=== PATIENT | female | born 1965 | race Caucasian/White ===

== ENCOUNTER 2016-11-15 10:09 | Emergency (ER) | payer OTHER ==
[~2016-11-15 10:09] MED LIST: ACETAMINOPHEN325 MG PO; BACLOFEN10 MG PO; IBUPROFEN200 MG PO; LIPITOR40 MG PO; NEURONTIN600 MG PO; PHENERGAN25 M1 PO; PRISTIQ100 MG PO; SYNTHROID150 MCG PO; ZOLOFT50 MG PO
== END 2016-11-15 16:55 | disposition home or self-care (01) ==
LOC: ER 10:09
DX: R07.9 Chest pain, unspecified (principal); J11.1 Influenza due to unidentified influenza virus with other respiratory manifestations; R79.89 Other specified abnormal findings of blood chemistry; F32.9 Major depressive disorder, single episode, unspecified; F41.9 Anxiety disorder, unspecified; N18.9 Chronic kidney disease, unspecified; E03.9 Hypothyroidism, unspecified
CPT/HCPCS: 36415; 87502; 96361; 96374; 96375; 96376; J2550; Q9967

== ENCOUNTER 2016-11-17 11:01 | Emergency (ER) | payer OTHER | END 2016-11-17 12:55 | disposition home or self-care (01) | LOC: ER 11:01 | DX: O09.40 Supervision of pregnancy with grand multiparity, unspecified trimester (principal) | CPT/HCPCS: 36415 ==